=== PATIENT | male | born 1995 | race Caucasian/White ===

== ENCOUNTER 2018-06-09 17:11 | Inpatient (IN) | payer OTHER ==
[2018-06-09 17:52] LABS: PLATELET COUNT 288 10^3/uL (150-400)
--- NOTE | 2018-06-09 17:53 | EDPHY ---
H & P Stated Complaint: "sent from [facility] residential for wanting to hurt myself" Time Seen by Provider: 06/09/18 17:26 HPI/ROS: CHIEF COMPLAINT: Suicidal ideation HISTORY OF PRESENT ILLNESS: The patient is a 22-year-old man with a history of depression on venlafaxine who was put in residential yesterday after getting intoxicated and getting in an argument with his parents and then with the police. Yesterday and today he expressed suicidal thoughts to the counselor there who today placed him on an M1 hold and had him brought here to the emergency department for medical clearance. Patient tells me that he is not currently suicidal but was suicidal because he was in residential. He denies any other significant medical history. No recent injuries or trauma. Severity: Moderate Modifying factors: None REVIEW OF SYSTEMS: Constitutional: denies: chills, fever, recent illness, recent injury EENTM: denies: blurred vision, double vision, nose congestion Respiratory: denies: cough, shortness of breath Cardiac: denies: chest pain, irregular heart rate, lightheadedness, palpitations Gastrointestinal/Abdominal: denies: abdominal pain, diarrhea, nausea, vomiting, blood streaked stools Genitourinary: denies: dysuria, frequency, hematuria, pain Musculoskeletal: denies: joint pain, muscle pain Skin: denies: lesions, rash, jaundice, bruising Neurological: denies: headache, numbness, paresthesia, tingling, dizziness, weakness Hematologic/Lymphatic: denies: blood clots, easy bleeding, easy bruising Immunologic/allergic: denies: HIV/AIDS, transplant 10 systems reviewed and negative except as noted EXAM: GENERAL: Well-appearing, well-nourished and in no acute distress. HEAD: Atraumatic, normocephalic. EYES: Pupils equal round and reactive to light, extraocular movements intact, sclera anicteric, conjunctiva are normal. ENT: TMs normal, nares patent, oropharynx clear without exudates. Moist mucous membranes. NECK: Normal range of motion, supple without lymphadenopathy or JVD. LUNGS: Breath sounds clear to auscultation bilaterally and equal. No wheezes rales or rhonchi. HEART: Regular rate and rhythm without murmurs, rubs or gallops. ABDOMEN: Soft, nontender, normoactive bowel sounds. No guarding, no rebound. No masses appreciated. BACK: No CVA tenderness, no spinal tenderness, step-offs or deformities EXTREMITIES: Normal range of motion, no pitting or edema. No clubbing or cyanosis. NEUROLOGICAL: Cranial nerves II through XII grossly intact. Normal speech, normal gait. 5/5 strength, normal movement in all extremities, normal sensation , normal reflexes PSYCH: Appears slightly manic, denies suicidality, is sad, slightly pressured speech SKIN: Warm, dry, normal turgor, no visible rashes or lesions. Source: Patient Exam Limitations: No limitations - Personal History Current Tetanus/Diphtheria Vaccine: Yes Current Tetanus Diphtheria and Acellular Pertussis (TDAP): Yes - Medical/Surgical History Hx Asthma: No Hx Chronic Respiratory Disease: No Hx Diabetes: No Hx Cardiac Disease: No Hx Renal Disease: No Hx Cirrhosis: No Hx Alcoholism: No Hx HIV/AIDS: No Hx Splenectomy or Spleen Trauma: No Other PMH: depression - Family History Significant Family History: No pertinent family hx - Social History Smoking Status: Heavy smoker Alcohol Use: None Constitutional: Initial Vital Signs Temperature (C) 36.7 C 06/09/18 17:20 Heart Rate 120 H 06/09/18 17:20 Respiratory Rate 16 06/09/18 17:20 Blood Pressure 125/72 H 06/09/18 17:20 O2 Sat (%) 93 06/09/18 17:20 O2 Delivery Mode Room Air Allergies/Adverse Reactions: No Known Allergies Allergy (Unverified 06/09/18 17:19) Home Medications: Medication Instructions Recorded Venlafaxine Xr 06/09/18 Medical Decision Making ED Course/Re-evaluation: 6:30 p.m. patient is medically cleared for psychiatric evaluation. 9:15 p.m. the patient has been accepted at [address] [place] [address] Faustin. I have completed transfer paperwork. Differential Diagnosis: Partial list of the Differential diagnosis considered include but were not limited to; depression, bipolar, suicidality and although unlikely based on the history and physical exam, I also considered intoxication, head injury, infection, schizophrenia. - Data Points Laboratory Results: Laboratory Results 06/09/18 17:35 06/09/18 17:35 06/09/18 06/09/18 17:45 17:45 Hemoglobin A1c Pending Estim Average Glucose Pending Total Bilirubin 0.8 mg/dL mg/dL (0.1-1.4) Conjugated Bilirubin 0.4 mg/dL mg/dL (0.0-0.5) Unconjugated Bilirubin 0.4 mg/dL mg/dL (0.0-1.1) AST 25 IU/L IU/L (17-59) ALT 27 IU/L IU/L (21-72) Alkaline Phosphatase 108 IU/L IU/L (38-126) Total Protein 7.7 g/dL g/dL (6.3-8.2) Albumin 4.8 g/dL g/dL (3.5-5.0) Triglycerides 55 mg/dL mg/dL (40-150) Cholesterol 200 mg/dL mg/dL (140-200) Cholesterol Risk Factr 0.8 (0.2-1.0) LDL Cholesterol, Calc 140 mg/dL H mg/dL (60-100) LDL Risk Factor 1.0 (0.2-1.0) VLDL Cholesterol 11 mg/dL mg/dL (8-25) Non-HDL Cholesterol 151 mg/dL H mg/dL (90-129) HDL Cholesterol 49 mg/dL mg/dL (40-70) LDL/HDL Ratio 2.86 RATIO RATIO (1.00-3.64) Cholesterol/HDL Ratio 4.08 RATIO RATIO (1.00-4.97) TSH Pending Departure - Departure Disposition: [facility] IP Clinical Impression: Suicidal ideation Condition: Fair
--- NOTE | 2018-06-09 20:36 | ASMTTCLDSP ---
TLC Discharge Disposition Disposition: Answers: Admit Discharge Concerns/Recommendations: Notes: In consultation with [facility] ED physician, Dick Persaud MD and on-call psychiatrist, Saige Faustin MD, both concurred that pt appears to meet 27-65 criteria requiring psychiatric hospitalization as pt appears to be at risk of harm to self due to a mental illness condition. Pt was read the Patient Rights and Responsibilities Statement on 06/09/18 20:15, original placed on chart, and was given photocopy of Rights. Pt signed the Patient Rights. Pt was given the 3N prohibited belongings list while in the ED. For inpatient Saige Faustin MD admission, the following psychiatrist agreed to accept patient for admission to Behavioral [facility] ([facility]): Date Signed: 06/09/2018 08:36 PM Electronically Signed By:Dinora Dunne
--- NOTE | 2018-06-09 20:40 | ASMTTLCEVL ---
TLC Evaluation - Basic Information Evaluation Start Date and 06/09/2018 07:00 PM Time Hospital Status Answers: M1 Hold 72-hr M1 Hold Start Date 06/09/2018 04:19 PM and Time Patient statement Notes: Well, I got really drunk and my parents called the captain airline pilot on me dia I was upset and yelling. The police aaressted me and took me to longterm, then I think they figured the hospital would be better." Narrative Notes: Pt is a 22 year old male who presented to [facility] ED on an M1 from [facility] that noted, " Mr. Sparrow expressed suicidal ideations at the time of arrest on 06/08/18. He reiterated those suicidal thoughts again on 06/09/18. He reports long-term depression. He shared a plan and intention to end his life. Mr. Sparrow presents as a danger to himslef at this time." Pt reports feeling depressed for a long time and stated, " I was feeling very down before going to longterm." Pt denied ever having a sucide plan and denies having SI prior to being in longterm. Pt also denies SI currently. Pt's mother reported that pt has been depressed for a couple years now and when he binge drinks, he tends to make suicidal threats. [facility] [place] stated last night pt was threatening suicide. Argenis stated last month, pt made sucidal threats again and mother stated, "it was much scarier for me. " Argenis stated pt was making comments like, " I just wanna go to the other side. I wanna be where Lex (SHERYL) is." Argenis stated she has never heard pt speak that way before. Mother reports that pt threatens suicide only when he is intoxicated, however she feels that pt is very depressed and is going through a very difficult time right now and believes he needs treatment. Diagnosis History Notes: Pt has a hx of depression. Prior suicide attempts Notes: Pt denied any prior suicide attempts. Prior hospitalizations Notes: Pt denied any prior hospitalizations. Treatment Responses Notes: N/A History of violence Notes: Pt denied any HI. Therapist: None Psychiatrist: None Medications (name, dosage, route, freq uency) Notes: Pt has been off his meds for two days. Pt was taking Effexor 150mg. Allergies/Reaction Notes: Nka Sleep Notes: Wnl Appetite Notes: Wnl Medical/Surgical history Notes: Pt denied any medical problems. Substance use history (frequency, intensity, his tory, duration) Notes: Pt reports using marijuanna every day. Pt reports he has been using marijuanna for years but he has increased in frequency in the last 6 months-1 year. Pt reports he doesn't drink alcohol every day but when he does drink alcohol, he drinks excessivley. Pt's utox was positive for marijuanna and bal was.0. Family composition Notes: Pt lives with his parents in [place] along with his two brothers. Pt had one brother who from suicide a couple years ago. Need for family Answers: No participation in patient's care Family psychiatric/substance abuse history Notes: Pt reported his brother had schizophrenia and committed sucide a couple years ago. Pt reported another one of his brothers is a recovering addict. There is a hx of alcoholism on his father's side. Developmental history Notes: Pt reported he grew up in [place] with his parents and brothers. Pt denied any concussions/tbi. Pt denied any childhood abuse hx. Abuse concerns Answers: None Marital status/children Notes: Unmarried, no children. Living situation Notes: Pt lives in [place] with his parents and two brothers. Sexual history/orientation Notes: Pt did not identify his sexual orientation Peer support/family strengths Notes: Pt reported his peer support system is limited. Education level/history Notes: Pt has a BA in computer science. 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 Notes: None Legal Notes: Pt reported he was arrested as a teenager for drug charges. Last night, pt was arrested for disordleyconduct. Islam/Spiritual Notes: None that would intefere with tx. Leisure Notes: Pt enjoys playing video games, hanging out with his dog. Collateral Notes: Mother-Argen[facility] Patient's strengths Answers: Insightful (Please select at least TWO strengths): Intelligent Supportive Family TLC Evaluation - Mental Status Exam Appearance: Answers: Appropriate Eye Contact: Answers: Intermittent Mood: Answers: Sad Affect: Answers: Calm Guarded Behavior: Answers: Cooperative Speech: Answers: Relevant Logical Clear Coherent Thought Process: Answers: Organized Oriented Alert Intact Insight: Answers: Fair Judgement: Answers: Poor Depression Answers: Hopelessness Signs/Symptoms: Sad Mood Hallucinations: Answers: None Pt reported to have Answers: No suicidal/self-injuring ideation/behavior? Pt reported to be making Answers: Yes suicidal/self-injuring threats? Pt reported to have Answers: No aggression/assault ideation/behavior? Pt reported to be making Answers: No aggression/assault threats? Pt exhibits inability to Answers: No care for self/grave disability? Ideation/behavior is Answers: No chronic? Ideation has Answers: No delusional/hallucinatory content? History of Answers: Yes suicidal/self-injuring ideation, behavior, or threats? History of Answers: No aggressive/assaultive ideation, behavior, or threats? History of serious Answers: No physical harm to self/others while in treatment setting? TLC Evaluation - Suicide/Homicide Risk Suicide Risk Factors: Answers: < 20 or > 40 Years of Age Alcohol/Heavy Drug Use Hopelessness Hx of Suicide Attempt by Family Member Major Depression Current Suicidal Answers: No Ideation? Current Suicidal Ideation Answers: Yes in the Past 48 Hours? Current Suicidal Ideation Answers: Yes in the Past Month? Suicide Internal Answers: Absence of Psychosis Protective Factors: Suicide External Answers: Responsibility to Pets Protective Factors: Ranking of patient's Answers: Severe suicidal risk: Ranking of patient's Answers: Low homicidal risk: TLC Evaluation - Wrap-up AXIS I Diagnosis (include DSM-V and ICD-10 codes), must also be entered in [employer], which is the source of truth. Notes: Major Depressive Disorder, single episode, severe 296.23 (F32.2) In consultation with [facility] ED physician, Dick Persaud MD and on-call psychiatrist, Saige Faustin MD, both concurred that pt appears to meet 27-65 criteria requiring psychiatric hospitalization as pt appears to be at risk of harm to self due to a mental illness condition. Pt was read the Patient Rights and Responsibilities Statement on (date/time), original placed on chart, and was given photocopy of Rights. Pt (signed/declined to sign) the Patient Rights. Pt was given the 3N prohibited belongings list while in the ED. Evaluation End Date and 06/09/2018 08:40 PM Time (HH:MM): Date Signed: 06/09/2018 08:39 PM Electronically Signed By:Dinora Dunne
[2018-06-09] MEDS ORDERED: LORazepam 0.5 MG TAB PO PRN (22:31)
[2018-06-09] MEDS ORDERED: MAGNESIUM HYDROXIDE 30 ML UDCUP PO PRN (22:31)
[2018-06-09] MEDS ORDERED: ACETAMINOPHEN 325 MG TAB PO PRN (22:31)
[2018-06-09] MEDS ORDERED: MAG HYDROX/AL HYDROX/SIMETH 30 ML UDCUP PO PRN (22:31)
[2018-06-09] MEDS ORDERED: MELATONIN 3 MG TAB PO PRN (22:32)
[2018-06-09] MEDS ORDERED: OLANZapine 5 MG TAB PO PRN (22:32)
[2018-06-10] MEDS: NICOTINE POLACRILEX 2 MG GUM B PRN ×2 (08:53→13:15)
--- NOTE | 2018-06-10 09:04 | ASMTBHMTP ---
Master Treatment Plan Master Treatment Plan Answers: Depressed Mood with for: Suicidal Ideation Date: 06/10/2018 Diagnosis on Admission: Major Depressive Disorder, single episode, severe 296.23 (F32.2) Expected length of stay: 3-5 Reason for admission: Notes: Pt is a 22 year old male who presented to [facility] ED on an M1 from [facility] that noted, " Mr. Sparrow expressed suicidal ideations at the time of arrest on 06/08/18. He reiterated those suicidal thoughts again on 06/09/18. He reports long-term depression. He shared a plan and intention to end his life. Mr. Sparrow presents as a danger to himslef at this time." Pt reports feeling depressed for a long time and stated, " I was feeling very down before going to [facility]." Pt denied ever having a sucide plan and denies having SI prior to being in [facility]. Pt also denies SI currently. Pt's mother reported that pt has been depressed for a couple years now and when he binge drinks, he tends to make suicidal threats. [facility] [place] stated last night pt was threatening suicide. Argenis stated last month, pt made sucidal threats again and mother stated, "it was much scarier for me. " Argenis stated pt was making comments like, " I just wanna go to the other side. I wanna be where Lex (SHERYL) is." Argenis stated she has never heard pt speak that way before. Mother reports that pt threatens suicide only when he is intoxicated, however she feels that pt is very depressed and is going through a very difficult time right now and believes he needs treatment. Patient's stated presenting problems: Notes: "Suicidal protocol. I had to go to [facility] for drinking alcohol and I don't like to be confined so when I was interviewed I made a suicidal statement". Patient's goals for treatment: Notes: "I like to go home. General happiness". Patient's strengths: Notes: "I am an organized person. I'm kind". Identify supports outside of hospital: Notes: "My mother, my old friends". Discharge criteria: Notes: SI will resolve and ct. will have a plan to safely manage recurrent SI. Initial disposition plan/considerations: Notes: Ct. will participate in unit activities and work on finding MH providers in the community. Master Treatment Plan Required Signatures Psychiatrist signature: Answers: Psychiatrist: RN on-shift signature: Answers: RN: Patient signature: Answers: Patient: Date Signed: 06/10/2018 09:03 AM Electronically Signed By:Bernice Correa
--- NOTE | 2018-06-10 09:08 | ASMTCMCOM ---
CM Note CM Note Notes: CC met with ct. to develop MTP. Ct. presented with flat affect and poor eye contact. Ct. reported that he feels agitated due to not being able to smoke. He denied current SI. Ct. reported having no MH providers in the community. He has been receiving meds. from his PCP. However, PCP recently told him that he needs to find MH providers. Let ct. know that it would be good if parents can start looking for F/U appointments for him while he is in the hospital. Ct. agreed to discussed it with parents. He signed [facility] for them. Date Signed: 06/10/2018 09:08 AM Electronically Signed By:Bernice Correa
[2018-06-10] MEDS ORDERED: VENLAFAXINE XR 75 MG CAP PO ONE (09:10)
--- NOTE | 2018-06-10 11:52 | PDMN ---
Medical Necessity Medical necessity: Pt meets inpt criteria per MD order and [facility] [id number], Major Depressive Disorder, Adult: Inpatient Care, 3 days. 22 y/o w/suicidal ideation admitted w/major depressive disorder, single episode, severe, meets criteria requiring psychiatric hospitalization as pt appears to be at risk of harm to self due to mental illness condition, on M1 hold.
--- NOTE | 2018-06-10 12:07 | BAPA ---
[f rep st] ADMISSION PSYCHIATRIC ASSESSMENT DATE OF SERVICE: 06/10/2018 CHIEF COMPLAINT: "I am here because I was on suicide protocol at the [facility] and they thought it would be best for me to go to the ER for an evaluation and then I was sent here for ongoing treatment." HISTORY OF PRESENT ILLNESS: From the ED note dated 06/09/2018, patient with history of depression, on venlafaxine, was jailed yesterday after getting intoxicated and getting in an argument with his parents and then with the police. The patient expressed suicidal thoughts to the counselor and was placed on an M1 hold while in correction and was then brought to the emergency department for medical clearance. From the [facility] evaluation dated 06/09/2018, at 7 p.m., the patient was placed on a 72-hour M1 hold with start date and time of 06/09/2018, at 4:19 p.m. The patient reported to the [facility] knifer up "well, I got really drunk and my parents called the food tester on me because I was upset and yelling. The police arrested me and took me to correction and then I think they figured the hospital would be better." The patient was admitted involuntarily on an M1 hold due to being a danger to himself and was hospitalized for safety, crisis stabilization and medication evaluation. The patient describes circumstances that led to current hospitalization as drinking "copious amounts of vodka and then I became irate and yelled at my parents and friends. My father called the police." The patient reported after being discharged from correction, he was brought to the [facility] for a psych evaluation and it was determined the patient should be placed in inpatient psychiatry for further evaluation. The patient reports history of depression and anxiety. The patient describes using alcohol prior to admission. The patient describes current psychiatric symptoms as anxiety. Reports he finds it difficult to control his worry, feels restless and keyed up, has difficulty concentrating, is at times irritable and at times anxiety causes sleep disturbance. The patient describes history of depression symptoms including depressed mood, poor appetite, insomnia, fatigue or loss of energy, feelings of worthlessness, diminished ability to concentrate, indecisiveness and reports recent suicidal ideation. The patient reports no history of abuse or trauma. The patient denies other psychiatric symptoms including symptoms of franki, ADHD, OCD, PTSD, psychosis and any other symptom of a psychiatric disorder not already described above. The patient reports psychiatric symptoms are impacting managing his day- to-day life, described as attending to household responsibilities without difficulty. The patient reports he was most recently working at [employer] and reports his work was going "okay" and reports no issues with work functioning. The patient reports he is currently not socializing, as all his friends reside in [place]. The patient reports he moved to [place] 1.5 years ago and reports he has not established any friends yet. The patient reports he typically gets along well with his mom and dad. The patient describes hobbies as playing video games and spending time with his dog. With regard to general satisfaction with life, the patient reports "not really." The patient denies current suicidal ideation and reports main protective factor as his dog. The patient reports this is the reason for him to continue to live and reports this is why he would not attempt suicide. The patient reports future goals as moving back to the [facility] as he has very close friends there. The patient reports his mother and father are supportive of his treatment. The patient denies current homicidal ideation. Denies current self- injurious ideation. The patient reports currently being seen by Carlton. The patient reports he does not know his primary care provider's last name and reports Carlton practices at the [facility]. PAST PSYCHIATRIC HISTORY: The patient reports past diagnoses of major depressive disorder and generalized anxiety disorder. The patient reports past psychotropic trial of Zoloft. Reports he was on Zoloft last year and reports it did not do enough for his social anxiety. The patient reports at that time, a tricyclic antidepressant was added. The patient reports he cannot remember the name of a TCA. Reports he decided to stop the TCA because he was concerned about his interaction with marijuana. The patient reports he was then switched to venlafaxine, which he has most recently been taking 150 mg p.o. daily. Reports he has been off this medication for 3 days. The patient reports he currently sees his primary care provider for medication management. Patient reports no history of inpatient psychiatric hospitalizations. Patient reports no history of withdrawal from drugs or alcohol. The patient reports a previous suicide attempt as a teenager by placing a plastic bag over his head. The patient reports he did abort the attempt. The patient reports no history of self-injurious behavior. ALLERGIES: No known allergies. CURRENT MEDICATIONS: 1. Tylenol 650 mg p.o. q.4 hours p.r.n. 2. Ativan 0.5 to 1 mg p.o. q.4 hours p.r.n. 3. Maalox syrup 30 mL q.6 hours p.r.n. 4. Milk of magnesia 30 mL p.o. daily p.r.n. 5. Melatonin 3 to 6 mg p.o. q.h.s. p.r.n. 6. Nicorette 2 mg q.1 hour p.r.n. 7. Olanzapine 5 mg p.o. q.4 hours p.r.n. 8. Effexor XR 75 mg p.o. daily. PAST MEDICAL HISTORY: The patient reports no significant history of medical or surgical problems. The patient denied any medical problems during the [facility] evaluation as well. SOCIAL HISTORY: The patient reports he currently lives with his parents in [place], [place] along with his 2 brothers. The patient reports he did have another brother who from suicide about 5 years ago. The patient reports he grew up in [place] with his parents and brothers. The patient reports he is currently not and has no children. The patient does not identify sexual orientation. The patient reports highest level of education as a BA and computer science. 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 The patient reports no history of duty. With regard to legal history, the patient reports he was arrested as a teenager for drug charges. The patient was recently arrested for disorderly conduct and jailed. The patient reports no voodoo or spiritual practice that would interfere with treatment. SUBSTANCE USE HISTORY: The patient reports he "drinks in excess" about once a month and drinks about 7+ drinks per occasion. The patient reports he has trouble stopping drinking once he starts. The patient reports he uses an E cigarette on a daily basis. The patient reports using marijuana on a daily basis and reports he has been using marijuana at times daily and times on and off for the past 6 months. Reports most recent use as daily. The patient reports no other history of substance use. SUBSTANCE ABUSE BRIEF INTERVENTION: Brief intervention regarding the risks of alcohol abuse is provided to patient with goal to reduce the risk of harm that could result from the continued use of alcohol, with the general aim to investigate the problem, raise awareness of problem, develop a solution with the patient, recommend a specific change or activity, and motivate the patient toward change. Assess substance abuse behavior and give supportive advice about harm reduction, recommend a reduction in hazardous/at-risk consumption patterns, and facilitate referrals for additional specialized treatment with progressive care nurse. Intermediate goal is for the patient to quit and attend outpatient substance abuse treatment. Intervention focus on intermediate goals to allow for more immediate success in the treatment process to keep the patient motivated. Review following with patient: Alcohol/Binge Drinking risks : short-term: injuries, violence, alcohol poisoning, risky sexual behaviors. Long-term: high blood pressure, stroke, liver disease, digestive problems, cancer, learning and memory problems, depression and anxiety, social problems, and alcohol dependence. OUTPATIENT SUBSTANCE ABUSE TREATMENT: Patient referred to outpatient provider and treatment for continued treatment related to substance abuse. FAMILY PSYCHIATRIC HISTORY: Patient reports no family psychiatric history of mental illness. The patient reports his brother completed suicide 4 or 5 years ago. The patient reports his oldest brother is a "recovering drug addict." The patient provides no other details regarding family psychiatric history. ADMISSION LABS AND STUDIES: 1. CBC within normal limits, except white blood cells were elevated at 12.20, neutrophils were elevated at 81.2, lymphocytes low at 12.1, basophils low at 0.2 , and absolute neutrophils were elevated at 9.91. 2. BMP within normal limits except glucose is elevated at 117. 3. Hemoglobin A1c was within normal limits at 5.2. 4. Liver function within normal limits. 5. Lipid panel within normal limits, except LDL cholesterol calculated was elevated at 140, non-HDL cholesterol was elevated at 151. 6. TSH within normal limits at 0.882. 7. Toxicology screen was non-negative for THC, negative for the other substances that were screened and negative for ethyl alcohol. MENTAL STATUS EXAM: The patient is a well-nourished male, looking stated chronological age. Attire is appropriate. Dress is casual. Grooming status is appropriate and clean. Ambulation is independent. Gait is normal and coordinated. Posture is normal and relaxed. Eye contact is appropriate and adequate. Motor activity is appropriate with purposeful, organized, coordinated movements with no involuntary movements noted. Attitude is cooperative and friendly. The patient appears attentive and relates well to this interviewer. Language production is spontaneous. Rate, rhythm and volume are normal. Articulation is clear. The patient reports mood as "anxious" with congruent affect. The patient's thought process is linear and logical with no loose associations, tangential thought, thought blocking, concrete thinking, or any other signs of formal thought disorder. The patient does not report suicidal or homicidal thoughts, ideas, or plans. The patient denies auditory or visual hallucinations. The patient denies delusions. The patient does not appear to be attending to internal stimuli. The patient is oriented to person, place, time and situation. The patient's attention and concentration are fair. Patient's insight and judgment are poor. There is no evidence of gross cognitive dysfunction at any point during the interview and no evidence of apparent dysfunction in recent or remote memory noted. The patient does not report undesirable side-effects from the current medications. DIAGNOSES: Based on the patient's history and current presentation, the patient 's diagnoses are: 1. Major depressive disorder, severe, with anxious distress. 2. Alcohol use, binge-drinking. FORMULATION: The patient is a 22-year-old male, single, most recently employed , living with his parents in [place], [place], who presents to the hospital involuntarily from the [facility] due to being a risk to himself and is currently on an M1 hold. The patient requires continued inpatient care because of current mood instability and recent suicidal ideation. The patient presents with problems of depression and anxiety that were exacerbated by heavy alcohol use. This led to the patient getting into argument with parents, subsequently led to patient's father calling the police. The patient was arrested for disorderly conduct and jailed in the [facility] where he was placed on suicide protocol due to making suicidal statements. The patient was released and sent to the [facility] for psychiatric evaluation due to concern for danger to himself. The patient has a past psychiatric history of depression and anxiety. Has been treated with Zoloft and most recently with venlafaxine. So far, response to treatment has been poor. The patient is a high suicide safety risk due to current mood instability and recent suicidal ideation. Protective factors while hospitalized include ongoing safety checks, active involvement in treatment and support from our treatment team. The patient could benefit from inpatient hospitalization for safety, crisis stabilization and medication evaluation. PLAN: 1. Medications: After reviewing options, risks and benefits with the patient, the patient agrees to continue current medications listed above. No other medication changes at this time as more time is needed to determine ongoing tolerability and efficacy. Plan is to continue to observe patient for response and side effects from medications, and ongoing monitoring and evaluation. 2. Review with patient informed consent and recommendations for psychotropic medication treatment listed below 3. Labs: no additional labs at this time 4. Therapy: continue milieu and group therapy 5. Further investigation including gathering information from patients relatives and review of past case records to inform treatment plan. 6. Safety/Wellness plan and follow-up outpatient appointments to be established prior to discharge. Next steps are for patient to meet with field care manager to plan a safe discharge plan and establish outpatient services for ongoing treatment. 7. Confer with inpatient treatment team regarding treatment plan. 8. Address psychosocial stressors by meeting with progressive care nurse to establish discharge plan including referrals for outpatient services. 9. Legal status: M1 10. Consider discharge on Friday if patient is in stable condition, safe, and has a safe discharge plan. 11. Substance abuse interventions: alcohol binge drinking ESTIMATED LENGTH OF STAY: 1-3 days PSYCHOTROPIC MEDICATION TREATMENT INFORMED CONSENT and RECOMMENDATIONS: Review nature of condition, diagnosis, and prognosis. Review nature and purpose of psychotropic medication treatment. Review type of psychotropic medications being ordered. Review risk and benefits of psychotropic medication treatment. Review probable length of time will need to take medications. Review risk and benefits of not undergoing psychotropic medication treatment. Review alternative treatments to psychotropic medications. Review psychotropic medications contraindications, drug-drug interactions, side effects, and importance of reporting any side effects to a psychiatric provider or nurse during inpatient hospitalization, and upon discharge to patients psychiatric outpatient provider, primary care provider, or other health animal daycare provider. Review importance of asking a nurse, psychiatric provider, or primary care provider any questions or problems concerning the psychotropic medications. Verify patient understands the information that has been provided, and understands, accepts, and agrees to psychotropic medications. Review patients safety plan and importance of patient to communicate to staff while hospitalized if patient is ever a danger to self/others, or unable to care for self, and upon discharge, the importance for patient to contact [place] [facility] or [facility], or go to the nearest emergency room, if patient is ever a danger to self/others, or unable to care for self. Recommend that upon discharge patient establish medication management treatment with a psychiatric provider, establishes routine therapy appointments, and follow-up with primary care provider. Verify patient understands and agrees to these recommendations. /[id number]/MODL MTDD
--- NOTE | 2018-06-10 16:28 | PDHOSCONS ---
History and Physical - Chief Complaint Suicidal ideation - History of Present Illness Alin Payne is a 22 yo M with PMHx of depression who presents to [facility] for suicidal ideations. Per report, pt put in detention yesterday after getting intoxicated and getting in an argument with his parents and then with the police. Yesterday and today he expressed suicidal thoughts to the counselor there who placed him on an M1 hold. He denies any other significant medical history. He reports some L shoulder pain after sleeping on hard floor/bench in senior living. History Information - Allergies/Home Medication List Allergies/Adverse Reactions: No Known Allergies Allergy (Unverified 06/09/18 17:19) Home Medications: Venlafaxine Xr 06/09/18 [Last Taken Unknown] I have personally reviewed and updated: family history, medical history, social history, surgical history - Social History Smoking Status: Heavy smoker Alcohol Use: None Review of Systems Review of Systems: ROS: 10pt was reviewed & negative except for what was stated in HPI & below Physical Exam Physical Exam: Temp Pulse Resp BP Pulse Ox 36.6 C 70 15 135/66 H 97 06/10/18 06:00 06/10/18 06:00 06/10/18 06:00 06/10/18 06:00 06/10/18 06:00 Constitutional: no apparent distress Eyes: PERRL Ears, Nose, Mouth, Throat: moist mucous membranes Cardiovascular: regular rate and rhythym Respiratory: no respiratory distress Gastrointestinal: No distension Skin: warm Musculoskeletal: full muscle strength Neurologic: AAOx3 Psychiatric: interacting appropriately Lab Data & Imaging Review 06/09/18 17:35 06/09/18 17:35 WBC 12.20 10^3/uL (3.80-9.50) H 06/09/18 17:35 RBC 5.13 10^6/uL (4.40-6.38) 06/09/18 17:35 Hgb 15.9 g/dL (13.7-17.5) 06/09/18 17:35 Hct 45.0 % (40.0-51.0) 06/09/18 17:35 MCV 87.7 fL (81.5-99.8) 06/09/18 17:35 MCH 31.0 pg (27.9-34.1) 06/09/18 17:35 MCHC 35.3 g/dL (32.4-36.7) 06/09/18 17:35 RDW 13.5 % (11.5-15.2) 06/09/18 17:35 Plt Count 288 10^3/uL (150-400) 06/09/18 17:35 MPV 10.7 fL (8.7-11.7) 06/09/18 17:35 Neut % (Auto) 81.2 % (39.3-74.2) H 06/09/18 17:35 Lymph % (Auto) 12.1 % (15.0-45.0) L 06/09/18 17:35 [place] % (Auto) 5.7 % (4.5-13.0) 06/09/18 17:35 Eos % (Auto) 0.6 % (0.6-7.6) 06/09/18 17:35 Baso % (Auto) 0.2 % (0.3-1.7) L 06/09/18 17:35 Nucleat RBC Rel Count 0.0 % (0.0-0.2) 06/09/18 17:35 Absolute Neuts (auto) 9.91 10^3/uL (1.70-6.50) H 06/09/18 17:35 Absolute Lymphs (auto) 1.48 10^3/uL (1.00-3.00) 06/09/18 17:35 Absolute Monos (auto) 0.70 10^3/uL (0.30-0.80) 06/09/18 17:35 Absolute Eos (auto) 0.07 10^3/uL (0.03-0.40) 06/09/18 17:35 Absolute Basos (auto) 0.02 10^3/uL (0.02-0.10) 06/09/18 17:35 Absolute Nucleated RBC 0.00 10^3/uL (0-0.01) 06/09/18 17:35 Immature Gran % 0.2 % (0.0-1.1) 06/09/18 17:35 Immature Gran # 0.02 10^3/uL (0.00-0.10) 06/09/18 17:35 Sodium 138 mEq/L (135-145) 06/09/18 17:35 Potassium 4.1 mEq/L (3.5-5.2) 06/09/18 17:35 Chloride 100 mEq/L (97-110) 06/09/18 17:35 Carbon Dioxide 25 mEq/l (22-31) 06/09/18 17:35 Anion Gap 13 mEq/L (6-14) 06/09/18 17:35 BUN 13 mg/dL (7-23) 06/09/18 17:35 Creatinine 0.8 mg/dL (0.7-1.3) 06/09/18 17:35 Estimated GFR > 60 06/09/18 17:35 Glucose 117 mg/dL (70-100) H 06/09/18 17:35 Hemoglobin A1c 5.2 % (4.0-6.0) 06/09/18 17:45 Estim Average Glucose 103 mg/dL (68-126) 06/09/18 17:45 Calcium 9.9 mg/dL (8.5-10.4) 06/09/18 17:35 Total Bilirubin 0.8 mg/dL (0.1-1.4) 06/09/18 17:45 Conjugated Bilirubin 0.4 mg/dL (0.0-0.5) 06/09/18 17:45 Unconjugated Bilirubin 0.4 mg/dL (0.0-1.1) 06/09/18 17:45 AST 25 IU/L (17-59) 06/09/18 17:45 ALT 27 IU/L (21-72) 06/09/18 17:45 Alkaline Phosphatase 108 IU/L (38-126) 06/09/18 17:45 Total Protein 7.7 g/dL (6.3-8.2) 06/09/18 17:45 Albumin 4.8 g/dL (3.5-5.0) 06/09/18 17:45 Triglycerides 55 mg/dL (40-150) 06/09/18 17:45 Cholesterol 200 mg/dL (140-200) 06/09/18 17:45 Cholesterol Risk Factr 0.8 (0.2-1.0) 06/09/18 17:45 LDL Cholesterol, Calc 140 mg/dL (60-100) H 06/09/18 17:45 LDL Risk Factor 1.0 (0.2-1.0) 06/09/18 17:45 VLDL Cholesterol 11 mg/dL (8-25) 06/09/18 17:45 Non-HDL Cholesterol 151 mg/dL (90-129) H 06/09/18 17:45 HDL Cholesterol 49 mg/dL (40-70) 06/09/18 17:45 LDL/HDL Ratio 2.86 RATIO (1.00-3.64) 06/09/18 17:45 Cholesterol/HDL Ratio 4.08 RATIO (1.00-4.97) 06/09/18 17:45 TSH 0.882 uIU/mL (0.465-4.680) 06/09/18 17:45 Urine Opiates Screen NEGATIVE (NEGATIVE) 06/09/18 18:10 Urine Barbiturates NEGATIVE (NEGATIVE) 06/09/18 18:10 Ur Phencyclidine Scrn NEGATIVE (NEGATIVE) 06/09/18 18:10 Ur Amphetamine Screen NEGATIVE (NEGATIVE) 06/09/18 18:10 U Benzodiazepines Scrn NEGATIVE (NEGATIVE) 06/09/18 18:10 Urine Cocaine Screen NEGATIVE (NEGATIVE) 06/09/18 18:10 U Marijuana (THC) Screen NON-NEGATIVE (NEGATIVE) H 06/09/18 18:10 Ethyl Alcohol < 10 mg/dL (0-10) 06/09/18 17:35 Assessment & Plan Assessment: Major depressive disorder, severe (Chronic) - Management per primary psychiatric team Patient is cleared from medical perspective.
[2018-06-11] MEDS: VENLAFAXINE XR 75 MG CAP PO SCH (08:32)
--- NOTE | 2018-06-11 08:34 | SOAPPROG ---
SOAP Progress Note Assessment/Plan: Assessment: Major Depressive Disorder, Severe. Alcohol Use Disorder, severe. Improvement noted. (see subjective/objective note). Patient could benefit from continued inpatient hospitalization for crisis stabilization, safety, and medication evaluation. Consider discharge tomorrow. Plan: 1. Medications: After reviewing options, risks, and benefits patient agrees to continue current medications. No medication changes at this time as more time is needed to determine ongoing tolerability and efficacy. Plan is to continue to observe patient for response and side effects from medications, and ongoing monitoring and evaluation. 2. Review with patient informed consent and recommendations for psychotropic medication treatment listed below 3. Labs: no additional labs at this time 4. Therapy: continue milieu and group therapy 5. Further investigation including gathering information from patients relatives and review of past case records to inform treatment plan. 6. Safety/Wellness plan and follow-up outpatient appointments to be established prior to discharge. Next steps are for patient to meet with care coordinator to plan a safe discharge plan and establish outpatient services for ongoing treatment. 7. Confer with inpatient treatment team regarding treatment plan. 8. Psychosocial stressors addressed through community case manager. 9. Legal status: M1 10. Consider discharge tomorrow if patient is in stable condition, safe, and has a safe discharge plan. 11. Substance abuse intervention: alcohol use PSYCHOTROPIC MEDICATION TREATMENT INFORMED CONSENT and RECOMMENDATIONS: Review nature of condition, diagnosis, and prognosis. Review nature and purpose of psychotropic medication treatment. Review type of psychotropic medications being ordered. Review risk and benefits of psychotropic medication treatment. Review probable length of time patient will need to take medications. Review risk and benefits of not undergoing psychotropic medication treatment. Review alternative treatments to psychotropic medications. Review psychotropic medications contraindications, drug-drug interactions, side effects, and importance of reporting any side effects to a psychiatric provider or nurse during inpatient hospitalization, and upon discharge to patients psychiatric outpatient provider, primary care provider, or other health healthcare financial analyst. Review importance of asking a nurse, psychiatric provider, or primary care provider any questions or problems concerning the psychotropic medications. Verify patient understands the information that has been provided, and understands, accepts, and agrees to psychotropic medications. Review patients safety plan and importance of patient to report to staff while hospitalized if patient is ever a danger to self/others, or unable to care for self, and upon discharge, the importance for patient to contact [facility] or [facility], or go to the nearest emergency room, if patient is ever a danger to self/others, or unable to care for self. Recommend that upon discharge patient establish medication management treatment with a psychiatric provider, establishes routine therapy appointments, and follow-up with primary care provider. Verify patient understands and agrees to these recommendations. 06/11/18 08:33 Subjective: Following up with patient for evaluation of mood and safety. Patient reports, "Feeling better. Just ready to be outside." Patient expresses the following psychiatric symptoms mild anxiety. Patient reports no side effects from current medications, and agrees to continue current medications. Patient reports good response from current medications. Patient describes getting 10 hours of sleep, and reports feeling rested today. Objective: Vital Signs Temp Pulse Resp BP Pulse Ox 36.6 C 83 16 137/84 H 95 06/10/18 06:00 06/10/18 16:00 06/10/18 16:00 06/10/18 16:00 06/10/18 16:00 NURSING REPORT: Consulted with nursing for update on patients progress in treatment. Nurses report patient is engaged in treatment, is attending some groups, slept 8 hours, expresses the following psychiatric symptoms: mild anxiety, exhibits the following psychiatric symptoms: anxiety; is eating all meals, is agreeable to medications as prescribed with no report of side effects , with no s/s of EPS/akathisia, and denies SI/HI, denies A/V hallucinations, and reports delusions, and denies SI/HI, denies A/V hallucinations, and denies delusions. FAMILY MEETING: Patient agrees to family meeting with his mom prior to discharge tomorrow. SUBSTANCE ABUSE BRIEF INTERVENTION: Brief intervention regarding the risks of alcohol and nicotine use is provided to patient with goal to reduce the risk of harm that could result from the continued use of alcohol and nicotine, with the general aim to investigate the problem, raise awareness of problem, develop a solution with the patient, recommend a specific change or activity, and motivate the patient toward change. Assess substance abuse behavior and give supportive advice about harm reduction, recommend a reduction in hazardous/at- risk consumption patterns, and facilitate referrals for additional specialized treatment with care navigator. Intermediate goal is for the patient to quit and attend outpatient substance abuse treatment. Intervention focus on intermediate goals to allow for more immediate success in the treatment process to keep the patient motivated. Review following with patient: Alcohol/Binge Drinking risks: short-term: injuries, violence, alcohol poisoning, risky sexual behaviors. Long-term: high blood pressure, stroke, liver disease, digestive problems, cancer, learning and memory problems, depression and anxiety, social problems, and alcohol dependence. Nicotine dependence: lung cancer, other cancers, heart and circulatory system problems, diabetes, eye problems, infertility and impotence, more prone to respiratory infections, weakened senses , teeth and gum disease, premature aging, second hand smoke. Withdrawal symptoms include strong cravings, anxiety, irritability, restlessness, difficulty concentrating, depressed mood, frustration, anger, increased hunger, insomnia, and constipation or diarrhea. OUTPATIENT SUBSTANCE ABUSE TREATMENT: Patient referred to outpatient provider and treatment for continued treatment related to substance abuse. MSE: The patient presents casually dressed and with good hygiene, and looks stated age. Patient is sitting, posture is upright, and position is relaxed. Patient appears awake, alert, and responds appropriately and reasonably during interview. Patient is engaged, relates well to interviewer, and emotional facial expression is appropriate to situation and changes appropriately with topic. Patient is cooperative, makes comfortable eye contact, and movements are voluntary, deliberate, coordinated, and smooth and even with no inappropriate movements. Patient makes laryngeal sounds effortlessly and shares conversation appropriately; pace of conversation is appropriate, and stream of talking is fluent; articulation is clear and understandable; word choice is effortless and appropriate for education level; completes sentences, occasionally pausing to think; rate and volume are appropriate for interview and setting. Patient reports mood as anxious. Patients affect is stable with full variable range, congruent with mood, and appropriate to speech and circumstances. Patient has linear and logical thinking, with no loose associations, tangential thought, thought blocking, concrete thinking, or any other signs of formal thought disorder. Patient denies suicidal and homicidal ideation, and denies hallucinations and delusions. Patient appears to be a reliable historian with sound judgement and good insight into current condition. Patient has no apparent dysfunction in recent or remote memory noted , and no evidence of gross cognitive dysfunction noted at any point during the interview. - Time Spent With Patient Time Spent With Patient: 15 minutes, met with patient individually. - Pending Discharge Pending Discharge Within 24 Hours: Yes Pending Discharge Within 48 Hours: No Pending Discharge Date: 06/12/18 Pending Discharge Time: 11:00 ICD10 Worksheet Patient Problems: Problems Problem Status Onset Suicidal ideation Acute Major depressive disorder, severe Chronic
[2018-06-11] MEDS: NICOTINE POLACRILEX 2 MG GUM B PRN ×5 (08:42→20:11)
[2018-06-11] MEDS ORDERED: VENLAFAXINE XR 150 MG CAP PO SCH (09:00)
--- NOTE | 2018-06-11 11:30 | ASMTCMCOM ---
CM Note CM Note Notes: CC checked in with ct. who presented with brighter affect and was more engaged in discharge planning. Ct. reported that he had a visit from his father whom he feels is "more concerned with my success than with my happeness". Ct. and FOC have different ideas on what he should be doing next. Discussed with ct. that open communication can be helpful and that even if they disagree on what's next talking about it is importent Discussed with ct. his alcohol drinking and recommended that he address it in treatment. He reported that he does not consider his drinking an issue and that he prefers to address his MH issues first. He agreed that having information about PEE resources on his discharge instructions can be helpful down the road. Family meeting with parents is scheduled for tomorrow followed by discharge. Date Signed: 06/11/2018 11:29 AM Electronically Signed By:Bernice Correa
--- NOTE | 2018-06-11 12:36 | ASMTBHDC ---
Notes Note: Notes: Ct. has a follow up appointment with PCP Dr. Arredondo 06/17/18 at 1:30pm [place] [id number] [place] [address] Date Signed: 06/11/2018 12:35 PM Electronically Signed By:Bernice Correa
[2018-06-12 07:05] VITALS: BP 113/72
[2018-06-12] MEDS: NICOTINE POLACRILEX 2 MG GUM B PRN ×3 (07:35→10:54)
--- NOTE | 2018-06-12 09:22 | BDS ---
[f rep st] BEHAVIORAL HEALTH DISCHARGE SUMMARY REASON FOR ADMISSION: From the ED note dated 06/09/2018, patient with history of depression, was placed in assisted on 06/08/2018, after getting intoxicated and getting into an argument with his parents and then with police. Patient recently expressed suicidal thoughts to counselor while in assisted and was placed on an M1 hold and was then brought to the emergency department. Patient was admitted involuntarily and on an M1 hold due to being a danger to himself. The patient was admitted for safety, crisis stabilization, and medication evaluation. ADMITTING DIAGNOSES: 1. Major depressive disorder, severe. 2. Alcohol use disorder, severe. 3. Nicotine dependence. 4. Cannabis use disorder, moderate. ADMISSION PHYSICAL EXAM: Patient was seen on 06/10/2018, for hospitalist history and physical consultation for medical clearance for inpatient psychiatric hospitalization and treatment. The patient was medically cleared for inpatient psychiatric hospitalization and treatment. For further details, please refer to hospitalist H and P consult document dated for 06/10/2018. ADMISSION LABS: 1. CBC within normal limits, except white blood cells were elevated at 12.20, neutrophils were elevated at 81.2, lymphocytes were low at 12.1, basophils low at 0.2, and absolute neutrophils were elevated at 9.91. 2. BMP within normal limits, except glucose elevated at 117. 3. Hemoglobin A1c within normal limits at 5.2. 4. Liver function within normal limits. 5. Lipid panel within normal limits, except LDL cholesterol calculated was elevated at 140, non-HDL cholesterol elevated at 151. 6. TSH was within normal limits at 0.882. 7. Toxicology screen was non-negative for THC, negative for all the other substances screen, negative for ethyl alcohol. MAJOR PROCEDURES/TESTS: None. HOSPITAL COURSE: The most prominent symptoms and behaviors while the patient was here were reports of severe anxiety and moderate depression. Treatment modalities utilized were milieu and group therapy. Effexor XR was restarted at 75 mg p.o. daily to target mood symptoms, was tolerated with no report of side effects. Patient has improved considerably with no signs of psychiatric symptoms and no psychiatric symptoms expressed. Patient reports he has improved since admission, states to be in stable condition, feels safe to discharge, and he contracts for safety. Patients response to treatment was good. There were no adverse or unexpected results of treatment. The patient was safe throughout stay, active in treatment, engaged in groups, and was appropriate with staff. Patient met with treatment team prior to discharge to assess readiness to discharge and review discharge plan. The treatment team consensus is the patient in stable condition, has a safe discharge plan, and is ready to discharge today. CONDITION AT DISCHARGE: Patient is in stable condition and is no longer a danger to self or others, and is not gravely disabled due to mental illness. Patient is no longer in need of inpatient level of care, and can be safely and effectively treated within the community. The patients level of risk at time of discharge is low. MSE: The patient is casually dressed and with good hygiene , and looks stated age. Patient is sitting, posture is upright, and position is relaxed. Patient appears awake, alert, and responds appropriately and reasonably during interview. Patient is engaged, relates well to interviewer, and emotional facial expression is appropriate to situation and changes appropriately with topic. Patient is cooperative, makes comfortable eye contact , and movements are voluntary, deliberate, coordinated, and smooth and even with no inappropriate movements. Patient makes laryngeal sounds effortlessly and shares conversation appropriately; pace of conversation is appropriate, and stream of talking is fluent; articulation is clear and understandable; word choice is effortless and appropriate for education level; completes sentences, occasionally pausing to think; rate and volume are appropriate for interview and setting. Patient reports mood as euthymic. Patients affect is stable with full variable range, congruent with mood, and appropriate to speech and circumstances. Patient has linear and logical thinking, with no loose associations, tangential thought, thought blocking, concrete thinking, or any other signs of formal thought disorder. Patient denies suicidal and homicidal ideation, and denies hallucinations and delusions. Patient appears to be a reliable historian with sound judgement and good insight into current condition. Patient has no apparent dysfunction in recent or remote memory noted , and no evidence of gross cognitive dysfunction noted at any point during the interview. DISCHARGE DIAGNOSES: 1. Major depressive disorder, severe. 2. Alcohol use disorder, severe. 3. Nicotine dependence. 4. Cannabis use disorder, moderate. CURRENT MEDICATIONS: After reviewing options risks and benefits with the patient, patient agrees to continue Effexor XR 75 mg p.o. daily. Patient requests prescription for Effexor XR at time of discharge. Prescription for 30 days is provided. Prescription is reviewed with the patient at time of discharge to ensure accuracy and patient understanding. DISPOSITION: Patient left hospital independently and voluntarily with his mother after meeting with this DESK REPRESENTATIVE for a family meeting. FOLLOWUP: microbiology coordinator reports the appropriate outpatient follow-up services have been established and outpatient appointments have been scheduled. The patient received written instructions with times and dates of outpatient follow-up appointments. The following follow-up recommendations were provided to the patient at discharge: Continue psychotropic medications as prescribed and attend appointments as scheduled. Report any side effects to a psychiatric outpatient provider, a primary care provider, or other health managed care liaison. Address any questions or problems concerning the psychotropic medications with a psychiatric outpatient provider, a primary care provider, or other health managed care liaison. Contact [facility] or [facility], or go to the nearest emergency room, if you are ever a danger to yourself/others, or unable to care for yourself. As soon as possible, establish a routine medication management treatment with a psychiatric provider, establish routine therapy appointments, and follow-up with a primary care provider. SUBSTANCE ABUSE BRIEF INTERVENTION: Brief intervention regarding the risks of alcohol abuse is provided to patient with goal to reduce the risk of harm that could result from the continued use of alcohol, with the general aim to investigate the problem, raise awareness of problem, develop a solution with the patient, recommend a specific change or activity, and motivate the patient toward change. Assess substance abuse behavior and give supportive advice about harm reduction, recommend a reduction in hazardous/at-risk consumption patterns, and facilitate referrals for additional specialized treatment with home care specialist. Intermediate goal is for the patient to quit and attend outpatient substance abuse treatment. Intervention focus on intermediate goals to allow for more immediate success in the treatment process to keep the patient motivated. Review following with patient: Alcohol/Binge Drinking risks : short-term: injuries, violence, alcohol poisoning, risky sexual behaviors. Long-term: high blood pressure, stroke, liver disease, digestive problems, cancer, learning and memory problems, depression and anxiety, social problems, and alcohol dependence. OUTPATIENT SUBSTANCE ABUSE TREATMENT: Patient referred to outpatient provider and treatment for continued treatment related to substance abuse. LEGAL COURSE: Patient was admitted on an M1 hold for involuntary inpatient psychiatric hospitalization and treatment. Patient was discharged today independently and voluntarily. ATTITUDE AT TIME OF DISCHARGE: The patients attitude was positive at time of discharge, and patient reports looking forward to discharging today. The patient reports he feels safe to discharge, is no longer a danger to himself or others, is in stable condition, and contracts for safety. Patient states he will continue medications as prescribed, and establish medication management treatment with an outpatient provider after discharge. Patient reports he understands the information that has been provided to him, and he understands, accepts, and agrees to psychotropic medications. Patient describes internal protective factors as the coping skills he has learned while hospitalized here, and he plans to continue to practice these coping skills after discharge. LABS AND RADIOLOGY STUDIES: There were no pending labs or studies at time of discharge. ADVANCED DIRECTIVES: There were no advance directives on file, and patient was full code. The following psychotropic medication treatment informed consent and recommendations were provided to the patient at time of discharge. Patient reports he understands, accepts, and agrees to the information that has been provided. PSYCHOTROPIC MEDICATION TREATMENT INFORMED CONSENT and RECOMMENDATIONS: Review nature of condition, diagnosis, and prognosis. Review nature and purpose of psychotropic medication treatment. Review type of psychotropic medications being prescribed. Review risk and benefits of psychotropic medication treatment. Review probable length of time will need to take medications. Review risk and benefits of not undergoing psychotropic medication treatment. Review alternative treatments to psychotropic medications. Review psychotropic medications contraindications, side effects, and importance of reporting any side effects to a psychiatric provider, primary care provider, or other health managed care liaison. Review importance of asking a psychiatric provider or primary care provider any questions or problems concerning the psychotropic medications. Review safety plan and the importance to contact [facility] or [facility] , or go to the nearest emergency room, if ever a danger to yourself/others, or unable to care for yourself. Recommend upon discharge to establish routine medication management treatment with a psychiatric provider, establish routine therapy appointments, and follow-up with a primary care provider. Verify patient understands, accepts, and agrees to the information that has been provided. /[id number]/MODL MTDD
[2018-06-12] MEDS: VENLAFAXINE XR 75 MG CAP PO SCH (09:31)
--- NOTE | 2018-06-12 12:11 | ASMTBHDC ---
Notes Note: Notes: The patient participated in clinical treatment team rounds, as well as, a family meeting with the provider. The patient reviewed his discharge plan. He expressed interest in repairing his relationship with his dather; he reported a hx of "not communicating about feelings." The patient denied HI. The patient expressed ambivalence about substance abuse support. He stated, "I'm willing, I just don't want to be confined." He reported that he doesn't wish to discontinue thc use and that he is willing to abstain from etoh although he doesn't want that to "mean forever." The patient discussed AA as a possible resource. Date Signed: 06/12/2018 12:08 PM Electronically Signed By:Adelia Tomas
== END 2018-06-12 11:30 | disposition home or self-care (01) | DRG 885 ==
LOC: EEVIPCON 17:11 → BBEH 22:15
PROVIDERS: ADMIT Psychiatry & Neurology Behavioral Neurology & Neuropsychiatry; ATTEND Psychiatry & Neurology Behavioral Neurology & Neuropsychiatry
DX: F32.2 Major depressive disorder, single episode, severe without psychotic features (principal); F10.20 Alcohol dependence, uncomplicated; F17.200 Nicotine dependence, unspecified, uncomplicated; F12.20 Cannabis dependence, uncomplicated
CPT/HCPCS: 80305; G0480